=== PATIENT | female | born 2000 | race Caucasian/White ===

== ENCOUNTER 2024-03-06 03:58 | Inpatient (IN) ==
[2024-03-06 04:35] LABS: ABS Eosinophils 0.1 10^3/uL (0.0-0.5); ABS Lymphocytes 2.2 10^3/uL (1.0-4.8); ABS Monocytes 0.5 10^3/uL (0.0-0.9); ABS Neutrophils 2.7 10^3/uL (1.5-7.6); Hematocrit 35.2 % (35-45); Hemoglobin 11.6 g/dL (11.5-14.3); Lymphocyte % 39.5 %; Mean Corpuscular Hemoglobin 25.7 pg (27-33); Mean Platelet Volume 8.1 fL (7.5-11.2); Platelet Count 346 10^3/uL (150-450); Red Blood Count 4.52 10^6/uL (3.63-4.92); White Blood Count 5.6 10^3/uL (3.8-11.8)
[2024-03-06] MEDS ORDERED: LORazepam 2 mg VIAL 1 ml ONE ×2 (04:47→05:03)
[2024-03-06] MEDS: LORazepam 2 mg VIAL 1 ml IV PUSH ONE ×2 (04:49→05:45)
[2024-03-06] MEDS ORDERED: FOSPHENYTOIN IVPB ONE (04:49)
[2024-03-06] MEDS ORDERED: NS 0.9% IVPB ONE (04:49)
[2024-03-06] MEDS ORDERED: EPINEPHrine,Rac 2.25% NEB.SOL 0.5 ML ONE (05:08)
[2024-03-06] MEDS: NS 0.9% IVPB ONE (05:10)
[2024-03-06] MEDS: FOSPHENYTOIN IVPB ONE (05:10)
[2024-03-06] MEDS: EPINEPHrine,Rac 2.25% NEB.SOL 0.5 ML INH ONE (05:12)
[2024-03-06 05:25] LABS: ALT 14 U/L (7-52); AST 14 U/L (13-39); Albumin 4.9 g/dL (3.5-5.7); Albumin/Globulin Ratio 1.6 (1-3); Alcohol, S < 13 mg/dL (<13); Alkaline Phosphatase 101 U/L (35-149); Anion Gap 8 mmol/L (2-16); Blood Urea Nitrogen 8 mg/dL (6-24); CO2 Carbon Dioxide 23 mmol/L (22-32); Calcium 9.5 mg/dL (8.6-10.3); Chloride 106 mmol/L (101-111); Creatinine, Serum 0.72 mg/dL (0.51-0.95); Glucose 86 mg/dL (70-100); Magnesium 2.1 mg/dL (1.9-2.7); Potassium 3.6 mmol/L (3.5-5.0); Sodium 137 mmol/L (135-145); Total Bilirubin 0.2 mg/dL (0.2-1.0); Total Protein 7.9 g/dL (6.4-8.9); eGFR CKD-EPI 120.4 (>60)
[2024-03-06] MEDS ORDERED: Lorazepam PYXIS KEY PRN (05:29)
[2024-03-06 05:31] LABS: HCG Pregnancy < 0.60 mIU/mL
[2024-03-06 05:59] LABS: Creatine Kinase 40 U/L (10-223)
[2024-03-06 06:19] LABS: Prolactin 13.1 ng/mL (1.0-25.0)
[2024-03-06] MEDS: LACOSAMIDE IV ONE (09:29)
[2024-03-06] MEDS: NS 0.9% IV ONE (09:29)
[2024-03-06] MEDS: LORazepam 2 mg VIAL 1 ml ONE (15:18)
[2024-03-06] MEDS: Enoxaparin 40 MG/0.4 ML SYR SUBCUT SCH ×2 (15:48→17:32)
[2024-03-06] MEDS: Phenytoin 100 mg ER CAP PO SCH (20:53)
[2024-03-07 05:27] LABS: Hematocrit 33.5 % (35-45); Mean Corpuscular Hemoglobin 25.5 pg (27-33); Mean Corpuscular Hgb Conc 32.7 g/dL (31-36); Red Cell Distribution Width 13.9 % (12-17); White Blood Count 3.9 10^3/uL (3.8-11.8)
[2024-03-07 06:41] LABS: ABS Eosinophils 0.1 10^3/uL (0.0-0.5); ABS Lymphocytes 1.8 10^3/uL (1.0-4.8); ABS Monocytes 0.3 10^3/uL (0.0-0.9); ABS Neutrophils 1.6 10^3/uL (1.5-7.6); Eosinophil % 3.2 %; Lymphocyte % 46.5 %; Nucleated Red Blood Cells % 0.1 %/100WBC (0.0-0.8); Platelet Count Platelets clumped. 10^3/uL (150-450)
[2024-03-07 14:33] VITALS: BP 134/102
== END 2024-03-07 16:00 | disposition home or self-care (01) | DRG 53 ==
LOC: ED 03:58 → EDHOLD 08:55 → ICU 10:19
PROVIDERS: ADMIT Internal Medicine; ATTEND Internal Medicine